=== PATIENT | female | born 1970 | race Caucasian/White ===

== ENCOUNTER → 2020-02-26 | Outpatient (CLI) | payer OTHER ==
[~2020-02-26] MED LIST: COLACE100 MG/10 PO; FERROUS GLUCONA27 MG PO; METHYLPREDNISOLO4 M2 PO; PROMETRIUM PO; ROBAXIN-750750 MG PO
== END | disposition home or self-care (01) ==
LOC: COVID19 11:00
PROVIDERS: ATTEND Family Medicine
DX: U07.1 COVID-19 (principal)